=== PATIENT | female | born 1995 | race Caucasian/White ===

== ENCOUNTER 2019-02-12 15:57 | Outpatient (CLI) | payer OTHER | END 2019-02-12 15:58 | disposition critical access hospital (66) | LOC: EDSEX → EMS 15:57 | PROVIDERS: ATTEND Surgery | DX: T45.0X2A Poisoning by antiallergic and antiemetic drugs, intentional self-harm, initial encounter (principal) | CPT/HCPCS: A0425; A0429 ==

== ENCOUNTER 2019-02-12 16:15 | Emergency (ER) | payer OTHER ==
--- NOTE | 2019-02-12 16:37 | ED Physician Documentation ---
History of Present Illness - Stated complaint Stated Complaint: SI - History obtained from History obtained from: Patient - History of Present Illness Timing: Prior to arrival (3 hours) - Additonal information Additional information: This is a 23-year-old biologically male person who is transitioning to female who presents with complaints that today had an argument with his . He is been depressed and dysphoric and is having problems with his transitioning that he is been in for the past 16 months and does not really have the finances to afford the surgeries that are to be required now. He said "the world is just [place] right now". He was on the phone with a friend in [place] and told him that he had taken 8 Benadryl and drank in an attempt to kill himself so the friend called 911. The patient was sleeping until the paramedics arrived and started pounding on the door. He admits to taking some marijuana today but no other illicit substances. He has not vomited. He denies any pain anywhere. He is not currently working and lives with his . Does have a prior history of some cutting behavior but is never been admitted to a psychiatric facility and is not currently in any type of counseling. Review of Systems Constitutional: denies: Fever Cardiac: denies: Chest pain / pressure, Palpitations Respiratory: denies: Dyspnea, Cough GI: denies: Abdominal Pain, Nausea, Vomiting, Diarrhea Neurologic: reports: Other (He is very sleepy) Psychiatric: reports: Depressed, Suicidal PD PAST MEDICAL HISTORY - Past Medical History Endocrine/Autoimmune: Other (Has been taking hormones to transition to female) - Allergies Allergies/Adverse Reactions: Allergies Allergy/AdvReac Type Severity Reaction Status Date / Time No Known Drug Allergies Allergy Verified 02/12/19 16:24 PD ED PE NORMAL - Vitals Vital signs reviewed: Yes - General General: No acute distress, Well developed/nourished, Other (Somnolent but easily arousable and oriented x3. ) - HEENT HEENT: Atraumatic, PERRL, Moist mucous membranes, Pharynx benign - Neck Neck: Supple, no meningeal sign, No JVD - Cardiac Cardiac: RRR, No murmur - Respiratory Respiratory: No respiratory distress - Abdomen Abdomen: Normal bowel sounds, Soft, Other (Tender in the left upper quadrant without hepatosplenomegaly) - Derm Derm: Normal color, Warm and dry, No rash - Extremities Extremities: No deformity - Neuro Neuro: clerical adjudicator 2-12 intact, No motor deficit, No sensory deficit, Normal speech, Other (No tremor) Eye Opening: Spontaneous Motor: Obeys Commands Verbal: Oriented GCS Score: 15 - Psych Psych: Other (Flat affect) Results - Vitals Vitals: Vital Signs - 24 hr 02/12/19 02/12/19 02/12/19 16:20 17:05 18:44 Temperature 36.5 C Heart Rate 83 81 76 Respiratory 18 14 19 Rate Blood Pressure 136/86 H 108/64 120/74 O2 Saturation 100 98 97 02/12/19 02/12/19 02/12/19 19:00 19:40 21:34 Temperature 36.4 C L Heart Rate 83 71 84 Respiratory 14 14 16 Rate Blood Pressure 109/71 109/71 109/71 O2 Saturation 99 97 100 Oxygen O2 Source Room air - EKG (time done) 1648 Rate: Rate (enter#) Rhythm: NSR Intervals: Normal IN. No: Prolonged QT Ischemia: Normal ST segments. No: Hyperacute T waves Compare to prior EKG: Old EKG unavailable - Labs Labs: Laboratory Tests 02/12/19 02/12/19 02/12/19 16:40 16:40 16:40 WBC 9.0 RBC 4.28 Hgb 13.4 Hct 38.7 MCV 90.5 MCH 31.2 H MCHC 34.5 RDW 13.0 Plt Count 207 MPV 8.7 Neut # (Auto) 7.2 H Lymph # (Auto) 1.4 L Humphreys # (Auto) 0.3 Eos # (Auto) 0.0 Baso # (Auto) 0.1 Absolute Nucleated RBC 0.00 Nucleated RBC % 0.0 Sodium 140 Potassium 3.7 Chloride 108 Carbon Dioxide 23 Anion Gap 9.0 BUN 13 Creatinine 0.5 Estimated GFR (MDRD) 156 Glucose 79 Calcium 9.5 Total Bilirubin 0.9 AST 17 ALT 16 Alkaline Phosphatase 55 Total Protein 7.4 Albumin 5.0 Globulin 2.4 Albumin/Globulin Ratio 2.1 Lipase 30 TSH 1.53 Urine Color Urine Clarity Urine pH Ur Specific Whitman Urine Protein Urine Glucose (UA) Urine Ketones Urine Occult Blood Urine Nitrite Urine Bilirubin Urine Urobilinogen Ur Leukocyte Esterase Ur Microscopic Review Urine Culture Comments Urine HCG, Qual Salicylates < 6.0 Urine Opiates Screen Ur Oxycodone Screen Urine Methadone Screen Ur Propoxyphene Screen Acetaminophen < 10 L Ur Barbiturates Screen Ur Tricyclics Screen Ur Phencyclidine Scrn Ur Amphetamine Screen U Methamphetamines Scrn U Benzodiazepines Scrn Urine Cocaine Screen U Cannabinoids Screen Ethyl Alcohol 33.4 02/12/19 02/12/19 16:50 16:50 WBC RBC Hgb Hct MCV MCH MCHC RDW Plt Count MPV Neut # (Auto) Lymph # (Auto) Humphreys # (Auto) Eos # (Auto) Baso # (Auto) Absolute Nucleated RBC Nucleated RBC % Sodium Potassium Chloride Carbon Dioxide Anion Gap BUN Creatinine Estimated GFR (MDRD) Glucose Calcium Total Bilirubin AST ALT Alkaline Phosphatase Total Protein Albumin Globulin Albumin/Globulin Ratio Lipase TSH Urine Color YELLOW Urine Clarity CLEAR Urine pH 6.0 Ur Specific Whitman <=1.005 Urine Protein NEGATIVE Urine Glucose (UA) NEGATIVE Urine Ketones NEGATIVE Urine Occult Blood NEGATIVE Urine Nitrite NEGATIVE Urine Bilirubin NEGATIVE Urine Urobilinogen 0.2 (NORMAL) Ur Leukocyte Esterase NEGATIVE Ur Microscopic Review NOT INDICATED Urine Culture Comments NOT INDICATED Urine HCG, Qual NEGATIVE Salicylates Urine Opiates Screen NEGATIVE Ur Oxycodone Screen NEGATIVE Urine Methadone Screen NEGATIVE Ur Propoxyphene Screen NEGATIVE Acetaminophen Ur Barbiturates Screen NEGATIVE Ur Tricyclics Screen NEGATIVE Ur Phencyclidine Scrn NEGATIVE Ur Amphetamine Screen NEGATIVE U Methamphetamines Scrn NEGATIVE U Benzodiazepines Scrn NEGATIVE Urine Cocaine Screen NEGATIVE U Cannabinoids Screen POSITIVE H Ethyl Alcohol PD MEDICAL DECISION MAKING - ED course Complexity details: re-evaluated patient, d/w patient ED course: Patient was monitored here and remained medically stable. We have asked for a tele-psych consult but have not yet had that accomplished. Care will be turned over to Dr. Osuna to follow-up on the tele-psych consult. - Consults Consults: Discussed case with (Poison control at 1645. . Based on the admitted ingestion, he is under the 300 mill grams of Benadryl that would be more problematicAnd therefore would be unlikely to develop any significant symptoms. After 4 to 6 hours postingestion would not expect any worsening of the symptoms. Will need to be monitored for QT prolongation as well as hallucinations or seizures. Also laboratory evaluation for any more concerning ingestions.)
[2019-02-12 16:47] LABS: BASOPHILS # (AUTO) 0.1 10^3/uL (0.0-0.1); BASOPHILS % (AUTO) 0.6 %; EOSINOPHILS % (AUTO) 0.3 %; HGB - HEMOGLOBIN 13.4 g/dL (12.0-16.0); LYMPHOCYTES # (AUTO) 1.4 10^3/uL (1.5-3.5); LYMPHOCYTES % (AUTO) 15.8 %; MEAN CORPUSCULAR HEMOGLOBIN 31.2 pg (27.0-31.0); MEAN CORPUSCULAR HGB CONC 34.5 g/dL (32.0-36.0); MEAN CORPUSCULAR VOLUME 90.5 fL (81.0-99.0); MEAN PLATELET VOLUME 8.7 fL (7.9-10.8); MONOCYTES # (AUTO) 0.3 10^3/uL (0.0-1.0); MONOCYTES % (AUTO) 3.1 %; NEUTROPHILS # (AUTO) 7.2 10^3/uL (1.5-6.6); NEUTROPHILS % (AUTO) 80.2 %; PLT - PLATELET COUNT 207 10^3/uL (130-450); RED BLOOD COUNT 4.28 10^6/uL (4.20-5.40)
[2019-02-12 17:02] LABS: ACETAMINOPHEN < 10 ug/mL (10-30); ALBUMIN/GLOBULIN RATIO 2.1 (1.0-2.2); ALKALINE PHOSPHATASE 55 IU/L (42-121); ALT ALANINE AMINOTRANSFERASE 16 IU/L (10-60); AST ASPARTATE AMINOTRANSFERASE 17 IU/L (10-42); BILIRUBIN,TOTAL 0.9 mg/dL (0.2-1.0); BUN - BLOOD UREA NITROGEN 13 mg/dL (6-20); CALCIUM 9.5 mg/dL (8.5-10.3); CARBON DIOXIDE - CO2 23 mmol/L (21-32); CHLORIDE 108 mmol/L (101-111); CREATININE 0.5 mg/dL (0.4-1.0); GFR - MDRD 156 (>89); GLUCOSE 79 mg/dL (70-100); LIPASE 30 U/L (22-51); SALICYLATE < 6.0 mg/dL; SODIUM 140 mmol/L (135-145); TOTAL PROTEIN 7.4 g/dL (6.7-8.2)
[2019-02-12 17:04] LABS: BILIRUBIN,URINE NEGATIVE (NEGATIVE); GLUCOSE, URINE (UA) NEGATIVE (NEGATIVE); KETONES,URINE (UA) NEGATIVE (NEGATIVE); LEUKOCYTE ESTERASE, URINE NEGATIVE (NEGATIVE); NITRITE,URINE NEGATIVE (NEGATIVE); OCCULT BLOOD,URINE NEGATIVE (NEGATIVE); PROTEIN,URINE NEGATIVE (NEGATIVE); UROBILINOGEN,URINE 0.2 (NORMAL) E.U./dL (NORMAL)
[2019-02-12 17:05] LABS: MUDS CUTOFF CONCENTRATIONS CUTOFF CONC BELOW:
[2019-02-12 17:07] LABS: CLARITY,URINE CLEAR (CLEAR); HCG UR QUAL NEGATIVE
[2019-02-12 17:15] LABS: AMPHETAMINE SCREEN,URINE NEGATIVE (NEGATIVE); BENZODIAZEPINES SCREEN, URINE NEGATIVE (NEGATIVE); COCAINE SCREEN URINE NEGATIVE (NEGATIVE); METHADONE SCREEN, URINE NEGATIVE (NEGATIVE); METHAMPHETAMINES SCREEN, URINE NEGATIVE (NEGATIVE); OPIATE SCREEN, URINE NEGATIVE (NEGATIVE); OXYCODONE SCREEN, URINE NEGATIVE (NEGATIVE); PROPOXYPHENE SCREEN, URINE NEGATIVE (NEGATIVE); TRICYCLIC ANTIDEPRESSANT,URINE NEGATIVE (NEGATIVE)
[2019-02-12] MEDS ORDERED: ONDANSETRON ODT 4 MG TABLET TL STA (22:40)
--- NOTE | 2019-02-13 00:34 | ED Physician Documentation ---
ED Addendum - Addendum Addendum: 02/13/19 00:33 Care the patient was assumed from the prior ER physician. We are pending tele- psych report. The patient is comfortable lying in bed. Labs have been drawn and s/he is medically cleared. 02/13/19 02:56 Dr. Jackson, tele-psychiatry, talked with the patient and got information from her that she had wanted to seek help but did not really have the intention of killing herself and therefore Dr. Jackson feels the patient can be discharged to outpatient services. The nurse will check with Jane and see if she wants to rest through the night and talk to social work in the morning or head home and follow-up with outpatient counseling and we can give referral to [facility].
--- NOTE | 2019-02-13 03:19 | TELEPSYCH PHYS NOTE ---
Telepsych Note - CHIEF COMPLAINT/HX OF PRESENT ILLNESS Cheif Complaint and History of Present Illness: Chief Complaint: depression HPI: The patient came to the hospital via ambulance after ingesting 8-9 tablets of Benadryl along with three glasses of wine in a suicide attempt. Patient reported that the overdose occurred after an argument with her . The patient did research on the ingestion. "I found out that taking those pills was unlikely to kill you but will likely lead to going to the hospital." The patient no longer reports suicidal thoughts and will spend time with a friend who she feels is more supportive. The friend (Brea: [phone]) was called for collateral. Brea has no safety concerns. - SI/HI/SELF HARM SI/HI/SELF HARM (CURRENT OR HISTORY OF):: SI SI/HI/Self Harm Text (Current or History of):: One previous attempt at age 17, cut self - VIOLENCE/LEGAL/COLLATERAL Violence - Legal - Collateral: Violence: none Legal: none Collateral: [phone], see details in HPI - PSYCHIATRIC HX/TREATMENT HX Psychiatric/Treatment Hx Other: No prior inpatient admission. Current outpatient treatment-none. One prior suicide attempts. - DRUG/ALCOHOL HX Substance Use and Type: Marijuana Substance use/abuse/alcohol text: Alcohol-drinks once a month, Cannabis-daily use via vape - MEDICAL HX Does the pt have a hx of MRSA?: No Endocrine/Autoimmune: Other (Has been taking hormones to transition to female) - ALLERGIES Allergies (as last confirmed): Allergies Allergy/AdvReac Type Severity Reaction Status Date / Time No Known Drug Allergies Allergy Verified 02/12/19 16:24 - FAMILY PSYCH/SUICIDE/SOCIAL HX-MENTAL Family - Suicide - Social Hx and Mental Status Exam: Family Psychiatric History: none Social History: , lives with Employment: none Education: HS grad, no college Stressors: relationship, recent move to area, lack of supports History: none Abuse: none Mental Status Examination: Attitude and behavior: cooperative Speech: WNL Affect and mood: sad affect and mood Association and thought processes: linear Thought content: no delusions, no SI, no HI Perception: no hallucinations Sensorium, memory, and orientation: AAOx3 Intellectual functioning: average Insight and judgment: poor - PATIENT PROBLEM LIST (1) Depressive disorder, not elsewhere classified Impression: The patient reports depressed mood and she came to the hospital after ingesting several tablets of Benadryl. Patient denies suicidal thoughts. Collateral from friend has no city concerns. Refer to outpatient care. - TREATMENT/PHARMACOLOGICAL RECOMMENDATION Treatment - Pharmacological - Therapy Recommendations: Treatment Recommendations: outpatient care Pharmacological: Prozac 10 mg daily Therapy: supportive Level of Care: outpatient - TIME SPENT & PROVIDER LOCATION Telepsych consultation conducted via videoconferencing: Yes List names and roles of persons who participated in consult: Andrea Jackson M.D. [facility] Telepsych Provider Location: [place] Time Telepsych consult began: 04:30 Time Telepsych consult completed: 04:50
[2019-02-13 03:20] VITALS: BP 114/81
== END 2019-02-13 03:22 | disposition home or self-care (01) ==
LOC: EDSEX 16:15 → ED 16:15
DX: T45.0X2A Poisoning by antiallergic and antiemetic drugs, intentional self-harm, initial encounter (principal); R40.0 Somnolence; Y92.009 Unspecified place in unspecified non-institutional (private) residence as the place of occurrence of the external cause; F32.9 Major depressive disorder, single episode, unspecified; Z79.890 Hormone replacement therapy
CPT/HCPCS: 80320; 80329; 81003; 81025; 83690; 99283; 99284; G0425; Q0162; Q3014; 36415; 80053; 80306; 80307; 81001; 84443; 85025; 87086; 93005